=== PATIENT | male | born 1980 | race Two or more races ===

== ENCOUNTER 2017-03-29 15:26 | Emergency (ER) | payer SELFPAY ==
[~2017-03-29] VITALS: Ht 152.4 cm; Wt 72.6 kg
--- NOTE | 2017-03-29 15:59 | NUR ---
XRAY AT [facility]
--- NOTE | 2017-03-29 16:29 | NUR ---
LORNA WHITLOCK, JONATHAN SCHNEIDER SPOKE WITH JACQUI
--- NOTE | 2017-03-29 18:00 | NUR ---
FAXED X-RAY TO [facility]
--- NOTE | 2017-03-29 18:30 | NUR ---
CALLED [facility]. NO [facility] SPECIALISTS AVAILABLE AT THIS TIME
--- NOTE | 2017-03-29 19:30 | NUR ---
PATIENT IS ACCEPTED AT [facility] BY DR [place]. NUMBER FOR REPORT [phone].
--- NOTE | 2017-03-29 19:50 | NUR ---
CHINYERE ROSADO FOR BLS TRANSPORT TO [facility] TRIP# [id number] Addendum: 03/29/17 at 1952 by LUIS MIGUEL ETA [id number]
--- NOTE | 2017-03-29 19:54 | NUR ---
REPORT GIVEN TO LOLY BUSBY
[2017-03-29 20:43] VITALS: BP 135/86
== END 2017-03-29 20:45 | disposition short-term general hospital (02) ==
LOC: ER 15:28
DX: S62.521A Displaced fracture of distal phalanx of right thumb, initial encounter for closed fracture (principal); S61.012A Laceration without foreign body of left thumb without damage to nail, initial encounter; W26.8XXA Contact with other sharp object(s), not elsewhere classified, initial encounter; Y93.89 Activity, other specified; Y92.89 Other specified places as the place of occurrence of the external cause; Y99.8 Other external cause status
CPT/HCPCS: 64450; 73130; 90471; 90715; 96361; 96374; 99284; A4606; A6402; J0690 ×2; J1170; J3490; J7060; Z7610